=== PATIENT | male | born 1970 | race African-American/Black ===

== ENCOUNTER 2017-01-10 16:47 | Emergency (ER) | payer OTHER ==
[2017-01-10 16:56] VITALS: BP 158/98; PULSE 66; TEMP 98.2; BMI 25.1
[2017-01-10] MEDS ORDERED: IBUPROFEN 400 MG TABLET (FP) PO ONE ×2 (18:23→18:28)
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
== END 2017-01-10 18:49 | disposition home or self-care (01) ==
LOC: JERFT 16:47
DX: S89.82XA Other specified injuries of left lower leg, initial encounter (principal); V03.10XA Pedestrian on foot injured in collision with car, pick-up truck or van in traffic accident, initial encounter; Y92.414 Local residential or business street as the place of occurrence of the external cause; Y93.89 Activity, other specified; Y99.8 Other external cause status
CPT/HCPCS: 99281-25

== ENCOUNTER 2017-08-22 13:02 | Emergency (ER) | payer OTHER ==
[2017-08-22 13:20] VITALS: BP 134/93; PULSE 70; TEMP 99.1; BMI 23.7
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
== END 2017-08-22 14:30 | disposition home or self-care (01) ==
LOC: JERFT 13:02
DX: S09.93XA Unspecified injury of face, initial encounter (principal); Y04.2XXA Assault by strike against or bumped into by another person, initial encounter; Y93.89 Activity, other specified; Y92.218 Other school as the place of occurrence of the external cause; Y99.0 Civilian activity done for income or pay; Y07.9 Unspecified perpetrator of maltreatment and neglect
CPT/HCPCS: 99281-25